=== PATIENT | female | born 1985 | race Caucasian/White ===

== ENCOUNTER 2018-10-23 10:09 | Outpatient (CLI) | payer MEDICAID ==
[2018-10-23 11:19] LABS: ADD MAN DIFF? NO
[2018-10-23 11:20] LABS: BASOPHILS % 0.2 % (0.0-2.0); EOSINOPHILS # 0.1 10^3/ul (0.0-0.5); EOSINOPHILS % 0.8 % (0.0-7.0); HEMATOCRIT 34.5 % (37.0-47.0); HEMOGLOBIN 11.1 g/dl (12.0-16.0); LYMPHOCYTES # 1.7 10^3/ul (0.8-2.9); LYMPHOCYTES % 15.3 % (15.0-51.0); MEAN CORPUSCULAR HEMOGLOBIN 28.8 pg (29.0-33.0); MEAN CORPUSCULAR HGB CONC 32.2 g/dl (32.0-37.0); MEAN CORPUSCULAR VOLUME 89.4 fl (82.0-101.0); MEAN PLATELET VOLUME 10.3 fl (7.4-10.4); MONOCYTE # 0.7 10^3/ul (0.3-0.9); MONOCYTES % 6.2 % (0.0-11.0); NEUTROPHIL # 8.7 10^3/ul (1.6-7.5); PLATELET COUNT 248 10^3/UL (140-415); RED BLOOD COUNT 3.86 10^6/ul (4.20-5.40); RED CELL DISTRIBUTION WIDTH 14.5 % (11.5-14.5)
[2018-10-23 11:20] LABS: WHITE BLOOD COUNT 11.3 10^3/ul (4.8-10.8)
[2018-10-23 11:44] LABS: ALANINE AMINOTRANSFERASE 16 IU/L (13-69); ALBUMIN 3.3 g/dl (3.3-4.9); ALBUMIN/GLOBULIN RATIO 1.06; ALKALINE PHOSPHATASE 154 IU/L (42-121); ANION GAP 7 (5-13); ASPARTATE AMINO TRANSFERASE 16 IU/L (15-46); BILIRUBIN,INDIRECT 0.2 mg/dl (0-1.1); BILIRUBIN,TOTAL 0.2 mg/dl (0.2-1.3); BLOOD UREA NITROGEN 14 mg/dl (7-20); CALCIUM 9.4 mg/dl (8.4-10.2); CARBON DIOXIDE 24 mmol/L (21-31); CHLORIDE 106 mmol/L (97-110); CREATININE 0.83 mg/dl (0.44-1.00); Estimated GFR > 60 mL/min (>60); GLUCOSE 111 mg/dl (70-220); PARTIAL THROMBOPLASTIN TIME 29.1 Sec (23.0-35.0); POTASSIUM 4.3 mmol/L (3.5-5.1); PROTIME 12.3 Sec (11.9-14.9); SODIUM 137 mmol/L (135-144); TOTAL PROTEIN 6.4 g/dl (6.1-8.1); URIC ACID 4.8 mg/dl (3.1-7.9)
[2018-10-23 12:32] LABS: ADD UMIC YES; UR ASCORBIC ACID NEGATIVE (NEGATIVE); UR BACTERIA FEW /HPF (NONE SEEN); UR BILIRUBIN (Dip) NEGATIVE (NEGATIVE); UR BLOOD (Dip) 1+ mg/dL (NEGATIVE); UR BUDDING YEAST FEW /HPF (NONE SEEN); UR CALCIUM OXALATE CRYSTAL MANY /HPF (NONE SEEN); UR CLARITY CLOUDY (CLEAR); UR COLOR AMBER (YELLOW); UR GLUCOSE (Dip) NEGATIVE (NEGATIVE); UR KETONES (Dip) NEGATIVE (NEGATIVE); UR LEUKOCYTE ESTERASE (Dip) 1+ Leu/ul (NEGATIVE); UR MUCUS FEW /HPF (NONE SEEN); UR NITRITE (Dip) NEGATIVE (NEGATIVE); UR RBC 7 /HPF (0-5); UR SPECIFIC GRAVITY (Dip) 1.027 (1.003-1.030); UR SQUAMOUS EPITHELIAL CELL MODERATE /HPF (FEW); UR TOTAL PROTEIN (Dip) 1+ mg/dl (NEGATIVE); UR UROBILINOGEN (Dip) NEGATIVE (NEGATIVE); UR WBC 21 /HPF (0-5)
== END 2018-10-23 13:35 | disposition home or self-care (01) ==
LOC: OBT 10:09 → L-D 10:10 → OBT 13:35
DX: O13.3 Gestational [pregnancy-induced] hypertension without significant proteinuria, third trimester (principal); Z3A.37 37 weeks gestation of pregnancy
CPT/HCPCS: 76818; 80053; 81001; 84560; 85025; 85384; 85610; 85730

== ENCOUNTER 2018-10-28 21:40 | Inpatient (IN) | payer MEDICAID ==
[2018-10-28] MEDS ORDERED: MISOPROSTOL 200 MCG TAB PR (22:30)
[2018-10-28] MEDS ORDERED: CARBOPROST 250 MCG INJ IM (22:30)
[2018-10-28] MEDS ORDERED: LIDOCAINE 1% (MPF) 30 ML INJ INJ (22:30)
[2018-10-28] MEDS ORDERED: OXYTOCIN 30 UNITS/LR 500 ML IV ×2 (22:30)
[2018-10-28] MEDS ORDERED: IBUPROFEN 600 MG TAB PO (22:30)
[2018-10-28] MEDS ORDERED: METHYLERGONOVINE 0.2 MG INJ IM (22:30)
[2018-10-28] MEDS ORDERED: BUTORPHANOL 2 MG INJ IV ×2 (22:30)
[2018-10-28] MEDS: LACTATED RINGER'S 1,000 ML IV (23:18)
[2018-10-29 00:33] LABS: ADD MAN DIFF? NO
[2018-10-29 00:36] LABS: BASOPHIL # 0.1 10^3/ul (0.0-0.1); BASOPHILS % 0.4 % (0.0-2.0); EOSINOPHILS # 0.1 10^3/ul (0.0-0.5); HEMOGLOBIN 11.7 g/dl (12.0-16.0); LYMPHOCYTES # 2.3 10^3/ul (0.8-2.9); LYMPHOCYTES % 17.9 % (15.0-51.0); MEAN CORPUSCULAR HEMOGLOBIN 28.9 pg (29.0-33.0); MEAN CORPUSCULAR HGB CONC 32.5 g/dl (32.0-37.0); MEAN CORPUSCULAR VOLUME 88.9 fl (82.0-101.0); MEAN PLATELET VOLUME 10.9 fl (7.4-10.4); MONOCYTE # 0.9 10^3/ul (0.3-0.9); MONOCYTES % 6.7 % (0.0-11.0); NEUTROPHIL # 9.6 10^3/ul (1.6-7.5); NEUTROPHILS % 73.4 % (39.0-77.0); PLATELET COUNT 279 10^3/UL (140-415); RED BLOOD COUNT 4.05 10^6/ul (4.20-5.40); RED CELL DISTRIBUTION WIDTH 14.5 % (11.5-14.5)
[2018-10-29 00:36] LABS: WHITE BLOOD COUNT 13.1 10^3/ul (4.8-10.8)
[2018-10-29 00:54] LABS: INR 0.88; PT RATIO 0.9
[2018-10-29 00:55] LABS: PARTIAL THROMBOPLASTIN TIME 29.9 Sec (23.0-35.0)
[2018-10-29] MEDS: MISOPROSTOL 50 MCG CAPSULE PO ×2 (01:41→07:07)
[2018-10-29] MEDS: LACTATED RINGER'S 1,000 ML IV ×5 (02:49→23:14)
[2018-10-29] MEDS ORDERED: TERBUTALINE 1 ML (04:06)
[2018-10-29] MEDS: TERBUTALINE 1 MG/ML INJ SC (04:14)
[2018-10-29] MEDS: NITROFURANTOIN (SR) 100 MG CAP PO ×2 (04:47→09:00)
[2018-10-29] MEDS ORDERED: METOCLOPRAMIDE 10 MG INJ (08:15)
[2018-10-29] MEDS ORDERED: FAMOTIDINE 20 MG INJ (08:16)
[2018-10-29] MEDS ORDERED: CITRIC ACID/NA CITRATE 30 ML CUP (08:16)
[2018-10-29] MEDS: CITRIC ACID/NA CITRATE 30 ML CUP PO (08:21)
[2018-10-29] MEDS: METOCLOPRAMIDE 10 MG INJ IV (08:21)
[2018-10-29] MEDS: FAMOTIDINE 20 MG INJ IV (08:21)
[2018-10-29] MEDS ORDERED: morphine SULFATE/PF (10 MG/10 ML) INJ (08:45)
[2018-10-29] MEDS ORDERED: ONDANSETRON 4 MG INJ (08:58)
[2018-10-29] MEDS ORDERED: OXYTOCIN 30 UNITS/LR 1,000 ML IV (08:59)
[2018-10-29] MEDS ORDERED: PHENYLephrine (100 MCG/ML) 5ML SYG (09:00)
[2018-10-29] MEDS ORDERED: CEFAZOLIN 1 GM INJ ×2 (09:00→09:07)
[2018-10-29] MEDS ORDERED: MEPERIDINE 25 MG INJ IV (09:30)
[2018-10-29] MEDS ORDERED: PROCHLORPERAZINE 10 MG INJ IV (09:30)
[2018-10-29] MEDS ORDERED: ONDANSETRON 4 MG INJ IV (09:30)
[2018-10-29] MEDS ORDERED: HYDROmorphONE 1 MG/5 ML IV SYRINGE IV ×3 (09:30)
[2018-10-29] MEDS ORDERED: DIPHENHYDRAMINE 50 MG INJ IV ×2 (09:30→13:00)
[2018-10-29] MEDS ORDERED: FENTAnyl 50 MCG/ML VIAL IV ×3 (09:30)
[2018-10-29] MEDS ORDERED: LABETALOL HCL 20MG INJ IV (09:30)
[2018-10-29] MEDS: OXYTOCIN 30 UNITS/LR 500 ML IV ×2 (10:04→13:52)
[2018-10-29] MEDS: CEFAZOLIN 2 GM/50 ML (PMX) 50 ML IVPB (10:46)
[2018-10-29] MEDS: KETOROLAC 30 MG INJ IV (12:03)
[2018-10-29] MEDS ORDERED: CARBOPROST 250 MCG INJ IM (13:00)
[2018-10-29] MEDS ORDERED: ZOLPIDEM 5 MG TAB PO (13:00)
[2018-10-29] MEDS ORDERED: METHYLERGONOVINE 0.2 MG INJ IM (13:00)
[2018-10-29] MEDS ORDERED: NACL 0.9% 3 ML SYG IV (13:00)
[2018-10-29] MEDS ORDERED: HYDROmorphONE 0.5 MG/0.5 ML SYG IV ×2 (13:00)
[2018-10-29] MEDS ORDERED: MISOPROSTOL 200 MCG TAB PR (13:00)
[2018-10-29] MEDS ORDERED: OXYTOCIN 30 UNITS/LR 500 ML IV (13:00)
[2018-10-29] MEDS ORDERED: NA PHOSPHATE/BIPHOS 133 ML ENEMA PR (13:00)
[2018-10-29] MEDS ORDERED: NALOXONE (0.4 MG/ML) INJ IV (13:00)
[2018-10-29] MEDS: IBUPROFEN 800 MG TAB PO ×2 (14:00→22:00)
[2018-10-29 15:05] LABS: RAPID PLASMA REAGIN NONREACTIVE (NR)
[2018-10-29] MEDS: ONDANSETRON 4 MG INJ IV (20:51)
[2018-10-29] MEDS: LANOLIN HPA 1 PKT TOP (23:13)
[2018-10-30] MEDS: KETOROLAC 30 MG INJ IV (03:47)
[2018-10-30] MEDS: IBUPROFEN 800 MG TAB PO ×3 (06:00→23:01)
[2018-10-30 08:01] LABS: ADD MAN DIFF? NO
[2018-10-30 08:05] LABS: BASOPHIL # 0.1 10^3/ul (0.0-0.1); BASOPHILS % 0.5 % (0.0-2.0); EOSINOPHILS # 0.1 10^3/ul (0.0-0.5); EOSINOPHILS % 0.5 % (0.0-7.0); HEMATOCRIT 27.1 % (37.0-47.0); HEMOGLOBIN 8.9 g/dl (12.0-16.0); LYMPHOCYTES # 1.5 10^3/ul (0.8-2.9); LYMPHOCYTES % 14.7 % (15.0-51.0); MEAN CORPUSCULAR HEMOGLOBIN 28.7 pg (29.0-33.0); MEAN CORPUSCULAR HGB CONC 32.8 g/dl (32.0-37.0); MEAN CORPUSCULAR VOLUME 87.4 fl (82.0-101.0); MEAN PLATELET VOLUME 10.2 fl (7.4-10.4); MONOCYTE # 0.6 10^3/ul (0.3-0.9); MONOCYTES % 6.1 % (0.0-11.0); NEUTROPHIL # 7.8 10^3/ul (1.6-7.5); NEUTROPHILS % 77.6 % (39.0-77.0); PLATELET COUNT 216 10^3/UL (140-415); RED CELL DISTRIBUTION WIDTH 15.1 % (11.5-14.5)
[2018-10-30] MEDS: HYDROCODONE/APAP (5/325) TAB PO ×3 (12:34→20:48)
[2018-10-31] MEDS: LANOLIN HPA 1 PKT TOP (02:31)
[2018-10-31] MEDS: IBUPROFEN 800 MG TAB PO ×3 (05:29→22:11)
[2018-10-31] MEDS: HYDROCODONE/APAP (5/325) TAB PO (14:34)
[2018-10-31] MEDS: BISACODYL 10 MG SUPP PR (15:10)
[2018-11-01] MEDS: IBUPROFEN 800 MG TAB PO ×2 (05:38→14:34)
[2018-11-01] MEDS: MEASLES,MUMPS,RUBELLA VACCINE INJ SC* (09:00)
[2018-11-01] MEDS: DIPHTH/TET/ACEL PERTUSS (ADULT) 0.5 ML VIAL IM* (09:00)
== END 2018-11-01 18:35 | disposition home or self-care (01) | DRG 788 ==
LOC: PP1 10-30 23:08 → L-D 21:40 → PP1 10-29 13:52
PROVIDERS: Obstetrics & Gynecology
PROC: 10D00Z1 Extraction of Products of Conception, Low, Open Approach (ICD-10-PCS; principal; 2018-10-29 08:45)
DX: O14.94 Unspecified pre-eclampsia, complicating childbirth (principal); O76 Abnormality in fetal heart rate and rhythm complicating labor and delivery; O61.0 Failed medical induction of labor; Z3A.37 37 weeks gestation of pregnancy; Z37.0 Single live birth
CPT/HCPCS: 76815; 85025; 85610; 85730; 86592; 86850; 86900; 86901; 88307; 99464